=== PATIENT | female | born 1980 | race Caucasian/White ===

== ENCOUNTER 2017-05-11 18:58 | Emergency (ER) | payer MEDICAID ==
[~2017-05-11] VITALS: Ht 162.6 cm; Wt 82.0 kg
[2017-05-11 19:06] VITALS: Ht 162.6 cm; Wt 82.0 kg
[2017-05-11] MEDS ORDERED: KETOROLAC 30 MG INJ IM STA (19:59)
[2017-05-11] MEDS ORDERED: TRAM50TA2 PO (20:15)
[2017-05-11] MEDS ORDERED: NAPR-260 PO (20:15)
[2017-05-11] MEDS ORDERED: CYCL-319 PO (20:16)
--- NOTE | 2017-05-11 20:23 | ERD ---
ER Documentation Chief Complaint Date/Time DATE: 05/11/17 TIME: 20:20 Chief Complaint neck pain x 2 days, right arm pain HPI Is a 37-year-old female who presents the emergency department today complaining of neck pain for the past 2 days. States the pain is going down into her right arm. Denies any fevers or chills. Denies any trauma. States that she just woke up like that. States that she took Motrin for pain with no improvement in symptoms ROS All systems reviewed and are negative except as per history of present illness. Medications Home Meds Active Scripts Cyclobenzaprine Hcl* (Cyclobenzaprine Hcl*) 10 Mg Tablet, 10 MG PO QHS, #15 TAB Prov:CHARLEEN WHARTON PA-C 05/11/17 Naproxen* (Naprosyn*) 500 Mg Tablet, 500 MG PO BID Y for PAIN AND/OR INFLAMMATION, #30 TAB Prov:CHARLEEN WHARTON PA-C 05/11/17 Tramadol HCl (Tramadol HCl) 50 Mg Tablet, 50 MG PO Q4 Y for PAIN, #20 TAB Prov:CHARLEEN WHARTON PA-C 05/11/17 Allergies Allergies: Coded Allergies: No Known Allergy (Unverified , 05/11/17) PMhx/Soc Medical and Surgical Hx: pt denies Medical Hx History of Surgery: Yes (hernia repair) Anesthesia Reaction: No Hx Neurological Disorder: No Hx Respiratory Disorders: No Hx Cardiac Disorders: No Hx Psychiatric Problems: No Hx Miscellaneous Medical Probl: No Hx Alcohol Use: Yes (social) Hx Substance Use: No Hx Tobacco Use: No Smoking Status: Never smoker Physical Exam Vitals Vital Signs Date Time Temp Pulse Resp B/P Pulse Ox O2 Delivery O2 Flow Rate FiO2 05/11/17 19:06 98.1 91 20 142/80 98 Physical Exam Const: No acute distress Head: Atraumatic Eyes: Normal Conjunctiva ENT: Ears TMs normal. Nose no drainage. Throat no erythema no exudate Neck: Full range of motion..~ No meningismus. Mild midline tenderness with bilateral paraspinal tenderness Resp: Clear to auscultation bilaterally Cardio: Regular rate and rhythm, no murmurs Skin: No petechiae or rashes Back: No midline or flank tenderness Ext: No cyanosis, or edema. Full active range of motion his right arm. Pulses 2+. Distal neurovascularly intact. Neur: Awake and alert Psych: Normal Mood and Affect Results 24 hrs Current Medications Medications (Trade) Dose Ordered Sig/Aba Route PRN Reason Start Time Stop Time Status Last Admin Dose Admin Ketorolac Tromethamine (Toradol) 30 mg ONCE STAT IM 05/11/17 19:59 05/11/17 20:00 DC 05/11/17 20:09 Procedures/MDM Is a 37-year-old female who presents to the emergency department today complaining of neck pain for the past 2 days. Patient has had no trauma and she has very mild midline tenderness I do not feel that she requires imaging at this time. Low suspicion for acute fracture dislocation. Patient did have a significant amount of tenderness in her lower trapezius muscles upon palpation and her symptoms at this time are most consistent with muscle strain versus sprain versus muscle spasm. I explained this to the patient. He is afebrile and otherwise well-appearing. Low suspicion for meningitis or torticollis or throat abscess as cause of neck pain. Patient has full active range of motion of her right arm. Her pulses are 2+. Low suspicion for DVT. Patient was given Toradol here in the emergency department. She will be given a prescription for tramadol, Naprosyn and Flexeril for home At this time the patient is stable for discharge and outpatient management. Patient should follow up with their PCP in the next 1-2 days. They may return to the emergency department sooner for any persistent or worsening of symptoms. Patient understood and agreed with the plan. Departure Diagnosis: Primary Impression: Neck pain Condition: Fair Patient Instructions: Muscle Spasm, Neck Pain, No Trauma [facility]: [facility] Usted se garcia hecho un examen mdico de control que le indica que no est en derrell condicin que requiera tratamiento urgente en el Departamento de Emergencia. Un estudio ms profundo y el tratamiento de lara condicin pueden esperar sin ningn riesgo hasta que usted sea atendida/o en el consultorio de lara mdico o derrell cl radha. Es responsabilidad suya arreglar derrell balaji para el seguimiento del soo. MANEJO DE CONDICIONES NO URGENTES EN EL FUTURO 1) Si usted tiene un mdico de atencin primaria: Usted debera llamar a lara mdico de atencin primaria antes de venir al departamento de emergencia. Despus de las horas de consultorio, lara doctor o lara asociado/a est disponible por telfono. El mdico o enfermero de leslie en el servicio telefnico puede asesorarle por heidy medio para atender el problema, o soo contrario se puede programar derrell balaji. 2) Si usted no tiene un mdico de atencin primaria: Llame al mdico o clnica de referencia que aparece abajo [place] las horas de consultorio para hacer derrell balaji para que le vean. CLINICAS: [facility] [phone] [facility] [phone] [facility] [phone] [address] [facility]. [facility] [phone] [facility] [phone] [id number] [facility] [phone] [address] Additional Instructions: Llame al doctor MAANA y pratik derrell BALAJI PARA DENTRO DE 1-2 WHYTE.Dgale a la secretaria que nosotros le instruimos hacer esta balaji.Avise o llame si lara condicin se empeora antes de la balaji. Regresa aqui si peor o no mejor. Take tramadol for severe pain otherwise take Naprosyn or Tylenol or Motrin Take Flexeril for muscle spasms. Take only at night and do not drive while taking this medication Apply ice and heat intermittently and do stretching exercises that you are instructed in CHARLEEN WHARTON PA-C May 11, 2017 20:23
[2017-05-11 20:31] VITALS: BP 120/74; PULSE 78; RESP 20; TEMP 98.6
== END 2017-05-11 20:30 | disposition home or self-care (01) ==
LOC: FTE 18:58
DX: M54.2 Cervicalgia (principal)
CPT/HCPCS: 96372; Z7502; J1885

== ENCOUNTER 2019-07-06 17:12 | Emergency (ER) | payer MEDICAID ==
[~2019-07-06] VITALS: Ht 152.4 cm; Wt 80.2 kg
[~2019-07-06 17:12] MED LIST: CLIN300C10 PO; CYCL10TA7 PO; D-ME473S2 PO; NAPR-985 PO; TRAM50TA2 PO; TRIA15CR55 TOP
[2019-07-06 17:21] VITALS: Ht 152.4 cm; Wt 80.2 kg
[2019-07-06] MEDS ORDERED: IBUPROFEN 600 MG TAB PO ONE (18:30)
[2019-07-06 19:29] VITALS: BP 121/77; PULSE 107; RESP 20
== END 2019-07-06 19:30 | disposition home or self-care (01) ==
LOC: FTE 17:12
DX: J02.0 Streptococcal pharyngitis (principal); I10 Essential (primary) hypertension; L03.116 Cellulitis of left lower limb
CPT/HCPCS: 87880; Z7502; Z7610; 99283